=== PATIENT | female | born 1935 | race Caucasian/White ===

== ENCOUNTER → 2016-07-27 | Outpatient (CLI) | payer MEDICARE, OTHER ==
[~2016-07-27] MED LIST: SYNTHROID0.05 MG PO; VITAMIN B12250 MCG PO; VITAMIN C PUR1000 MG PO
== END ==
LOC: MAMMO 09:23
DX: Z12.31 Encounter for screening mammogram for malignant neoplasm of breast (principal)
CPT/HCPCS: G0202

== ENCOUNTER → 2016-07-27 | Outpatient (CLI) | payer MEDICARE, OTHER | LOC: RAD 09:25 | DX: M85.80 Other specified disorders of bone density and structure, unspecified site (principal) ==

== ENCOUNTER → 2017-02-16 | Outpatient (CLI) | payer MEDICARE, OTHER ==
[2015-07-02 11:54] VITALS: BP 158/65
== END ==
LOC: LAB 16:25
DX: R10.2 Pelvic and perineal pain (principal)

== ENCOUNTER → 2017-06-25 | Outpatient (CLI) | payer MEDICARE, OTHER ==
[2015-07-02 11:54] VITALS: BP 158/65
[2017-06-25 17:21] LABS: EOS # 0.1 (0.04-0.40); EOS % 0.8 % (1.0-5.0); HEMATOCRIT 39.4 % (37.0-47.0); HEMOGLOBIN 13.1 g/dL (12.5-16.0); LYMPH# 1.8 (1.50-4.00); MEAN CELL VOLUME 88 fl (78-100); MEAN CORPUSCULAR HEMOGLOBIN 29 pg (27-31); MEAN CORPUSCULAR HGB CONC 33 g/dL (33-37); MONO # 0.8 (0.20-0.80); NEU # 5.1 (1.40-6.50); PLATELET COUNT 270 K/mm3 (130-400); RED CELL DISTRIBUTION WIDTH 13.8 % (11.5-14.5); WHITE BLOOD COUNT 7.7 K/mm3 (4.8-10.8)
[2017-06-25 17:32] LABS: ALBUMIN 3.8 g/dL (3.5-5.0); BUN/CREATININE RATIO 23.5 (6.0-26.0); CALCIUM 9.4 mg/dL (8.4-10.2); POTASSIUM 3.9 mmol/L (3.6-5.0); TOTAL BILIRUBIN 0.4 mg/dL (0.2-1.3); TOTAL PROTEIN 6.7 g/dL (6.3-8.2)
[2017-06-25 18:02] LABS: MEAN PLATELET VOLUME 12.2 fl (7.4-10.4)
[2017-06-25 18:04] LABS: ERYTHROCYTE SEDIMENTATION RATE 5 mm/hr (0-30)
[2017-06-25 18:36] LABS: PH-URINE 5.5 (5.0 - 8.0); URINE APPEARANCE HAZY; URINE BILIRUBIN NEGATIVE (NEGATIVE); URINE BLOOD NEGATIVE (NEGATIVE); URINE COLOR YELLOW; URINE GLUCOSE NEGATIVE (NEGATIVE); URINE KETONE NEGATIVE (NEGATIVE); URINE NITRATE NEGATIVE (NEGATIVE); URINE PROTEIN(semi-quant) NEGATIVE (NEGATIVE); URINE UROBILINOGEN NORMAL (NORMAL)
[2017-06-25 18:37] LABS: URINE LEUKOCYTE ESTERASE 2+ (NEGATIVE)
== END ==
LOC: LAB 15:16
PROVIDERS: Internal Medicine
DX: M85.89 Other specified disorders of bone density and structure, multiple sites (principal); E78.2 Mixed hyperlipidemia; E03.4 Atrophy of thyroid (acquired); Z12.11 Encounter for screening for malignant neoplasm of colon; N39.0 Urinary tract infection, site not specified

== ENCOUNTER → 2017-06-28 | Outpatient (CLI) | payer MEDICARE, OTHER ==
[2015-07-02 11:54] VITALS: BP 158/65
== END ==
LOC: LAB 08:04
DX: Z12.11 Encounter for screening for malignant neoplasm of colon (principal)

== ENCOUNTER → 2018-02-11 | Outpatient (CLI) | payer MEDICARE, BC ==
[2015-07-02 11:54] VITALS: BP 158/65
== END ==
LOC: RAD 10:32
DX: M79.671 Pain in right foot (principal)

== ENCOUNTER → 2018-03-02 | Outpatient (CLI) | payer MEDICARE, OTHER ==
[2015-07-02 11:54] VITALS: BP 158/65
== END ==
LOC: MAMMO 09:50
DX: Z12.31 Encounter for screening mammogram for malignant neoplasm of breast (principal); Z98.890 Other specified postprocedural states

== ENCOUNTER → 2018-03-02 | Outpatient (CLI) | payer MEDICARE, OTHER ==
[2015-07-02 11:54] VITALS: BP 158/65
== END ==
LOC: RAD 10-20 10:00
DX: Z13.820 Encounter for screening for osteoporosis (principal); M85.80 Other specified disorders of bone density and structure, unspecified site

== ENCOUNTER → 2018-04-28 | Outpatient (CLI) | payer MEDICARE, OTHER ==
[2015-07-02 11:54] VITALS: BP 158/65
== END ==
LOC: RAD 11:20
DX: M19.071 Primary osteoarthritis, right ankle and foot (principal)

== ENCOUNTER → 2018-05-02 | Outpatient (CLI) | payer MEDICARE, OTHER ==
[2015-07-02 11:54] VITALS: BP 158/65
== END ==
LOC: RAD 14:00
DX: M76.811 Anterior tibial syndrome, right leg (principal)

== ENCOUNTER → 2018-06-28 | Outpatient (CLI) | payer MEDICARE, OTHER ==
[2015-07-02 11:54] VITALS: BP 158/65
[2018-06-28 14:16] LABS: EOS % 0.4 % (1.0-5.0); HEMATOCRIT 41.4 % (37.0-47.0); HEMOGLOBIN 13.7 g/dL (12.5-16.0); LYMPH# 1.7 (1.50-4.00); MEAN CELL VOLUME 88 fl (78-100); MEAN CORPUSCULAR HEMOGLOBIN 29 pg (27-31); MEAN CORPUSCULAR HGB CONC 33 g/dL (33-37); MEAN PLATELET VOLUME 11.3 fl (7.4-10.4); MONO # 0.6 (0.20-0.80); NEU # 4.4 (1.40-6.50); PLATELET COUNT 234 K/mm3 (130-400); RED BLOOD COUNT 4.69 M/mm3 (4.10-5.30); RED CELL DISTRIBUTION WIDTH 13.6 % (11.5-14.5); WHITE BLOOD COUNT 6.7 K/mm3 (4.8-10.8)
[2018-06-28 14:24] LABS: ALBUMIN 4.4 g/dL (3.5-5.0); CALCIUM 9.7 mg/dL (8.4-10.2); POTASSIUM 3.7 mmol/L (3.6-5.0); TOTAL BILIRUBIN 0.3 mg/dL (0.2-1.3); TOTAL PROTEIN 7.4 g/dL (6.3-8.2)
[2018-06-28 14:49] LABS: URINE APPEARANCE CLEAR; URINE BILIRUBIN NEGATIVE (NEGATIVE); URINE BLOOD NEGATIVE (NEGATIVE); URINE COLOR YELLOW; URINE GLUCOSE NEGATIVE (NEGATIVE); URINE KETONE NEGATIVE (NEGATIVE); URINE LEUKOCYTE ESTERASE 1+ (NEGATIVE); URINE NITRATE NEGATIVE (NEGATIVE); URINE PROTEIN(semi-quant) TRACE mg/dL (NEGATIVE); URINE UROBILINOGEN NORMAL (NORMAL)
[2018-06-28 14:50] LABS: URINE MUCUS PRESENT (NOT PRESENT)
[2018-06-28 16:31] LABS: ERYTHROCYTE SEDIMENTATION RATE 7 mm/hr (0-30)
== END ==
LOC: LAB 13:25
PROVIDERS: Internal Medicine
DX: Z13.820 Encounter for screening for osteoporosis (principal); M85.80 Other specified disorders of bone density and structure, unspecified site; E03.9 Hypothyroidism, unspecified; E78.5 Hyperlipidemia, unspecified; R20.2 Paresthesia of skin

== ENCOUNTER → 2018-06-30 | Outpatient (CLI) | payer MEDICARE, OTHER ==
[2015-07-02 11:54] VITALS: BP 158/65
== END ==
LOC: LAB 08:49
DX: Z13.820 Encounter for screening for osteoporosis (principal); M85.80 Other specified disorders of bone density and structure, unspecified site; E03.9 Hypothyroidism, unspecified; E78.5 Hyperlipidemia, unspecified

== ENCOUNTER → 2018-08-25 | Outpatient (CLI) | payer MEDICARE, OTHER ==
[2015-07-02 11:54] VITALS: BP 158/65
== END ==
LOC: LAB 13:12
DX: E03.9 Hypothyroidism, unspecified (principal)

== ENCOUNTER → 2019-06-26 | Day surgery (SDC) | payer MEDICARE, OTHER ==
[2015-07-02 11:54] VITALS: BP 158/65
== END ==
LOC: MSO 06-19 08:34
DX: Z12.11 Encounter for screening for malignant neoplasm of colon (principal); Z80.0 Family history of malignant neoplasm of digestive organs; K63.5 Polyp of colon
CPT/HCPCS: 00811; J2704; J7120

== ENCOUNTER → 2019-06-28 | Outpatient (CLI) | payer MEDICARE, OTHER ==
[2015-07-02 11:54] VITALS: BP 158/65
[2019-06-28 11:31] LABS: EOS % 0.2 % (1.0-5.0); HEMOGLOBIN 12.7 g/dL (12.5-16.0); LYMPH# 1.5 (1.50-4.00); MEAN CELL VOLUME 89 fl (78-100); MEAN CORPUSCULAR HEMOGLOBIN 28 pg (27-31); MEAN CORPUSCULAR HGB CONC 32 g/dL (33-37); MEAN PLATELET VOLUME 10.5 fl (7.4-10.4); PLATELET COUNT 274 K/mm3 (130-400); RED BLOOD COUNT 4.48 M/mm3 (4.10-5.30); RED CELL DISTRIBUTION WIDTH 13.3 % (11.5-14.5); WHITE BLOOD COUNT 9.5 K/mm3 (4.8-10.8)
[2019-06-28 11:38] LABS: PH-URINE 5.5 (5.0 - 8.0); URINE APPEARANCE CLEAR; URINE BILIRUBIN NEGATIVE (NEGATIVE); URINE BLOOD NEGATIVE (NEGATIVE); URINE COLOR YELLOW; URINE GLUCOSE NEGATIVE (NEGATIVE); URINE KETONE NEGATIVE (NEGATIVE); URINE LEUKOCYTE ESTERASE NEGATIVE (NEGATIVE); URINE NITRATE NEGATIVE (NEGATIVE); URINE PROTEIN(semi-quant) TRACE mg/dL (NEGATIVE); URINE UROBILINOGEN NORMAL (NORMAL); URINE WBC 0-1 /hpf (0-3)
[2019-06-28 11:40] LABS: POTASSIUM 3.9 mmol/L (3.5-5.1)
[2019-06-28 11:41] LABS: ALBUMIN 3.8 g/dL (3.4-4.8)
[2019-06-28 11:43] LABS: TOTAL PROTEIN 6.8 g/dL (6.2-8.1)
[2019-06-28 11:45] LABS: TOTAL BILIRUBIN 0.2 mg/dL (0.2-1.2)
[2019-06-28 12:34] LABS: ERYTHROCYTE SEDIMENTATION RATE 14 mm/hr (0-30)
== END ==
LOC: MAMMO 10:58
PROVIDERS: Internal Medicine
DX: Z12.31 Encounter for screening mammogram for malignant neoplasm of breast (principal); Z13.820 Encounter for screening for osteoporosis; E03.9 Hypothyroidism, unspecified; E78.5 Hyperlipidemia, unspecified; M85.80 Other specified disorders of bone density and structure, unspecified site; R20.2 Paresthesia of skin

== ENCOUNTER → 2019-06-30 | Outpatient (CLI) | payer MEDICARE, OTHER ==
[2015-07-02 11:54] VITALS: BP 158/65
== END ==
LOC: LAB 09:25
DX: E78.5 Hyperlipidemia, unspecified (principal); E03.9 Hypothyroidism, unspecified; M85.80 Other specified disorders of bone density and structure, unspecified site

== ENCOUNTER → 2019-07-14 | Outpatient (CLI) | payer MEDICARE, OTHER ==
[2015-07-02 11:54] VITALS: BP 158/65
[2019-07-14 12:33] LABS: ALBUMIN 3.8 g/dL (3.4-4.8); POTASSIUM 4.3 mmol/L (3.5-5.1)
[2019-07-14 12:34] LABS: CALCIUM 9.1 mg/dL (8.3-10.5)
[2019-07-14 12:35] LABS: TOTAL PROTEIN 6.8 g/dL (6.2-8.1)
[2019-07-14 12:37] LABS: TOTAL BILIRUBIN 0.2 mg/dL (0.2-1.2)
[2019-07-14 12:40] LABS: EOS # 0.1 (0.04-0.40); EOS % 1.1 % (1.0-5.0); HEMATOCRIT 40.9 % (37.0-47.0); HEMOGLOBIN 13.2 g/dL (12.5-16.0); MEAN CELL VOLUME 88 fl (78-100); MEAN CORPUSCULAR HEMOGLOBIN 28 pg (27-31); MEAN CORPUSCULAR HGB CONC 32 g/dL (33-37); MEAN PLATELET VOLUME 10.8 fl (7.4-10.4); MONO # 0.7 (0.20-0.80); NEU # 4.1 (1.40-6.50); PLATELET COUNT 213 K/mm3 (130-400); RED BLOOD COUNT 4.65 M/mm3 (4.10-5.30); RED CELL DISTRIBUTION WIDTH 13.6 % (11.5-14.5); WHITE BLOOD COUNT 5.5 K/mm3 (4.8-10.8)
[2019-07-14 12:41] LABS: LYMPH# 0.7 (1.50-4.00)
[2019-07-14 12:49] LABS: PH-URINE 5.5 (5.0 - 8.0); URINE APPEARANCE CLEAR; URINE BILIRUBIN NEGATIVE (NEGATIVE); URINE BLOOD NEGATIVE (NEGATIVE); URINE COLOR YELLOW; URINE GLUCOSE NEGATIVE (NEGATIVE); URINE KETONE NEGATIVE (NEGATIVE); URINE LEUKOCYTE ESTERASE TRACE (NEGATIVE); URINE NITRATE NEGATIVE (NEGATIVE); URINE PROTEIN(semi-quant) NEGATIVE (NEGATIVE); URINE UROBILINOGEN NORMAL (NORMAL)
== END ==
LOC: RAD 12:11
PROVIDERS: Nurse Practitioner Family
DX: J98.4 Other disorders of lung (principal); B33.0 Epidemic myalgia

== ENCOUNTER → 2020-07-03 | Outpatient (CLI) | payer MEDICARE, OTHER ==
[2015-07-02 11:54] VITALS: BP 158/65
== END ==
LOC: MAMMO 09:38
DX: Z12.31 Encounter for screening mammogram for malignant neoplasm of breast (principal)

== ENCOUNTER → 2020-07-03 | Outpatient (CLI) | payer MEDICARE, OTHER ==
[2015-07-02 11:54] VITALS: BP 158/65
[2020-07-03 09:59] LABS: EOS % 0.3 % (1.0-5.0); HEMATOCRIT 39.6 % (37.0-47.0); HEMOGLOBIN 12.9 g/dL (12.5-16.0); LYMPH# 1.6 (1.50-4.00); MEAN CELL VOLUME 88 fl (78-100); MEAN CORPUSCULAR HEMOGLOBIN 29 pg (27-31); MEAN CORPUSCULAR HGB CONC 33 g/dL (33-37); MEAN PLATELET VOLUME 10.7 fl (7.4-10.4); MONO # 0.6 (0.20-0.80); NEU # 4.8 (1.40-6.50); PLATELET COUNT 233 K/mm3 (130-400); RED BLOOD COUNT 4.48 M/mm3 (4.10-5.30); RED CELL DISTRIBUTION WIDTH 13.7 % (11.5-14.5)
[2020-07-03 10:13] LABS: ALBUMIN 4.2 g/dL (3.4-4.8); POTASSIUM 3.9 mmol/L (3.5-5.1)
[2020-07-03 10:14] LABS: CALCIUM 9.2 mg/dL (8.3-10.5)
[2020-07-03 10:16] LABS: TOTAL PROTEIN 7.1 g/dL (6.2-8.1)
[2020-07-03 10:18] LABS: TOTAL BILIRUBIN 0.4 mg/dL (0.2-1.2)
[2020-07-03 11:29] LABS: PH-URINE 5.5 (5.0 - 8.0); URINE APPEARANCE CLEAR; URINE BILIRUBIN NEGATIVE (NEGATIVE); URINE BLOOD NEGATIVE (NEGATIVE); URINE COLOR YELLOW; URINE GLUCOSE NEGATIVE (NEGATIVE); URINE KETONE NEGATIVE (NEGATIVE); URINE LEUKOCYTE ESTERASE NEGATIVE (NEGATIVE); URINE MUCUS PRESENT (NOT PRESENT); URINE NITRATE NEGATIVE (NEGATIVE); URINE PROTEIN(semi-quant) TRACE mg/dL (NEGATIVE); URINE UROBILINOGEN NORMAL (NORMAL); URINE WBC 0-1 /hpf (0-3)
[2020-07-03 11:33] LABS: ERYTHROCYTE SEDIMENTATION RATE 15 mm/hr (0-30)
== END ==
LOC: RAD 09:38 → MAMMO 10:45
PROVIDERS: Internal Medicine
DX: M85.80 Other specified disorders of bone density and structure, unspecified site (principal); E03.4 Atrophy of thyroid (acquired); E78.2 Mixed hyperlipidemia; N39.46 Mixed incontinence

== ENCOUNTER → 2021-02-21 | Outpatient (CLI) | payer MEDICARE ==
[2021-02-21 10:03] LABS: URINE APPEARANCE CLEAR; URINE BILIRUBIN NEGATIVE (NEGATIVE); URINE BLOOD NEGATIVE (NEGATIVE); URINE COLOR YELLOW; URINE GLUCOSE NEGATIVE (NEGATIVE); URINE KETONE NEGATIVE (NEGATIVE); URINE LEUKOCYTE ESTERASE NEGATIVE (NEGATIVE); URINE NITRATE NEGATIVE (NEGATIVE); URINE PROTEIN(semi-quant) NEGATIVE (NEGATIVE); URINE UROBILINOGEN NORMAL (NORMAL); URINE WBC 0-1 /hpf (0-3)
== END ==
LOC: LAB 09:18
PROVIDERS: Internal Medicine
DX: N39.46 Mixed incontinence (principal)

== ENCOUNTER → 2021-05-20 | Outpatient (CLI) | payer MEDICARE | LOC: RAD 12:31 | DX: M17.12 Unilateral primary osteoarthritis, left knee (principal) ==

== ENCOUNTER → 2021-07-08 | Outpatient (CLI) | payer MEDICARE ==
[2021-07-08 09:07] LABS: BASO # 0.02 K/mm3 (0.02-0.10); EOS # 0.06 K/mm3 (0.04-0.40); EOS % 0.7 % (1.0-5.0); LYMPH# 2.35 K/mm3 (1.50-4.00); MEAN CELL VOLUME 90 fl (78-100); MEAN CORPUSCULAR HEMOGLOBIN 29 pg (27-31); MEAN CORPUSCULAR HGB CONC 32 g/dL (33-37); NEU # 4.93 K/mm3 (1.40-6.50); PLATELET COUNT 259 K/mm3 (130-400); RED BLOOD COUNT 4.54 M/mm3 (4.10-5.30); RED CELL DISTRIBUTION WIDTH 14.1 % (11.5-14.5); WHITE BLOOD COUNT 8.3 K/mm3 (4.8-10.8)
[2021-07-08 09:14] LABS: POTASSIUM 4.1 mmol/L (3.5-5.1)
[2021-07-08 09:15] LABS: CALCIUM 9.6 mg/dL (8.3-10.5)
[2021-07-08 09:17] LABS: TOTAL PROTEIN 7.3 g/dL (6.2-8.1)
[2021-07-08 09:18] LABS: TOTAL BILIRUBIN 0.3 mg/dL (0.2-1.2)
== END ==
LOC: LAB 08:51
PROVIDERS: Internal Medicine
DX: Z12.11 Encounter for screening for malignant neoplasm of colon (principal); E78.2 Mixed hyperlipidemia; E03.4 Atrophy of thyroid (acquired); K90.9 Intestinal malabsorption, unspecified

== ENCOUNTER → 2021-07-08 | Outpatient (CLI) | payer MEDICARE | LOC: MAMMO 09:06 | DX: Z12.31 Encounter for screening mammogram for malignant neoplasm of breast (principal) ==

== ENCOUNTER → 2022-08-17 | Outpatient (CLI) | payer MEDICARE ==
[~2022-08-17] MED LIST changes: +NORCO 325 MG-51 TA1 PO
[2022-08-17 19:26] LABS: BASO # 0.01 K/mm3 (0.02-0.10); EOS # 0.03 K/mm3 (0.04-0.40); EOS % 0.4 % (1.0-5.0); HEMOGLOBIN 13.2 g/dL (12.5-16.0); LYMPH# 2.16 K/mm3 (1.50-4.00); MEAN CELL VOLUME 91 fl (78-100); MEAN CORPUSCULAR HEMOGLOBIN 29 pg (27-31); MEAN CORPUSCULAR HGB CONC 32 g/dL (33-37); MEAN PLATELET VOLUME 10.8 fl (7.4-10.4); PLATELET COUNT 227 K/mm3 (130-400); RED BLOOD COUNT 4.52 M/mm3 (4.10-5.30); RED CELL DISTRIBUTION WIDTH 13.5 % (11.5-14.5); WHITE BLOOD COUNT 7.7 K/mm3 (4.8-10.8)
[2022-08-17 19:39] LABS: ALBUMIN 4.3 g/dL (3.4-4.8); POTASSIUM 3.8 mmol/L (3.5-5.1)
[2022-08-17 19:41] LABS: CALCIUM 9.7 mg/dL (8.3-10.5)
[2022-08-17 19:42] LABS: TOTAL PROTEIN 7.5 g/dL (6.2-8.1)
[2022-08-17 19:44] LABS: TOTAL BILIRUBIN 0.3 mg/dL (0.2-1.2)
== END ==
LOC: LAB 19:13
PROVIDERS: Nurse Practitioner Family
DX: M79.89 Other specified soft tissue disorders (principal)

== ENCOUNTER → 2023-04-29 | Day surgery (SDC) | payer MEDICARE ==
[~2023-04-29] MED LIST changes: +AMLODIPINE BESYL5 MG PO; +CALCIUM500 M1 PO; +CYCLOBENZ5 MG PO; +GOOD NEIGHBOR M25 M1 PO; +PHENERGAN 25 TA25 MG PO; +TRAMADOL 50 MG TAB PO
== END | disposition home or self-care (01) ==
LOC: MSO 04-05 13:19
DX: Z12.11 Encounter for screening for malignant neoplasm of colon (principal); Z87.891 Personal history of nicotine dependence; Z86.010 Personal history of colon polyps
CPT/HCPCS: 00812; J1920; J2704; J3010; J7120

== ENCOUNTER 2023-05-06 09:31 | Emergency (ER) | payer MEDICARE ==
[~2023-05-06] VITALS: Ht 157.5 cm; Wt 56.4 kg
[~2023-05-06 09:31] MED LIST changes: -AMLODIPINE BESYL5 MG PO; -CALCIUM500 M1 PO; -GOOD NEIGHBOR M25 M1 PO; -PHENERGAN 25 TA25 MG PO
[2023-05-06 10:03] LABS: BASO # 0.01 K/mm3 (0.02-0.10); EOS # 0.02 K/mm3 (0.04-0.40); EOS % 0.2 % (1.0-5.0); HEMATOCRIT 40.8 % (37.0-47.0); HEMOGLOBIN 13.2 g/dL (12.5-16.0); MEAN CELL VOLUME 93 fl (78-100); MEAN CORPUSCULAR HEMOGLOBIN 30 pg (27-31); MEAN CORPUSCULAR HGB CONC 32 g/dL (33-37); MEAN PLATELET VOLUME 9.4 fl (7.4-10.4); MONO # 0.71 K/mm3 (0.20-0.80); NEU # 9.58 K/mm3 (1.40-6.50); PLATELET COUNT 243 K/mm3 (130-400); RED CELL DISTRIBUTION WIDTH 14.4 % (11.5-14.5); WHITE BLOOD COUNT 11.3 K/mm3 (4.8-10.8)
[2023-05-06 10:17] LABS: ALBUMIN 3.5 g/dL (3.4-4.8); SODIUM 140 mmol/L (136-145)
[2023-05-06 10:18] LABS: CALCIUM 9.2 mg/dL (8.3-10.5)
[2023-05-06 10:19] LABS: GLUCOSE 123 mg/dL (65-105); TOTAL PROTEIN 6.3 g/dL (6.2-8.1)
[2023-05-06 10:20] LABS: CARBON DIOXIDE 28 mmol/L (23-31)
[2023-05-06 10:21] LABS: TOTAL BILIRUBIN 0.4 mg/dL (0.2-1.2)
[2023-05-06] MEDS ORDERED: CALCIUM500 M1 PO (10:23)
[2023-05-06 10:25] LABS: AST-SGOT 18 U/L (5-34)
[2023-05-06 10:26] LABS: ALT/SGPT 36 U/L (0-55)
[2023-05-06 10:43] LABS: TROPONIN-I < 0.030 ng/mL (<0.030)
[2023-05-06 11:44] LABS: URINE WBC 0 /hpf (0-3)
[2023-05-06 12:37] LABS: URINE APPEARANCE CLOUDY; URINE BILIRUBIN NEGATIVE (NEGATIVE); URINE BLOOD TRACE (NEGATIVE); URINE COLOR YELLOW; URINE GLUCOSE NEGATIVE (NEGATIVE); URINE KETONE NEGATIVE (NEGATIVE); URINE LEUKOCYTE ESTERASE NEGATIVE (NEGATIVE); URINE NITRATE NEGATIVE (NEGATIVE); URINE PROTEIN(semi-quant) NEGATIVE (NEGATIVE); URINE UROBILINOGEN NORMAL (NORMAL)
[2023-05-06] MEDS ORDERED: AMLODIPINE BESYL5 MG PO (14:33)
[2023-05-06] MEDS ORDERED: PHENERGAN 25 TA25 MG PO (14:35)
[2023-05-06] MEDS ORDERED: GOOD NEIGHBOR M25 M1 PO (14:35)
[2023-05-06 15:40] VITALS: BP 116/59
== END 2023-05-06 15:43 | disposition home or self-care (01) ==
LOC: ED 09:31
PROVIDERS: Nurse Practitioner
DX: H81.10 Benign paroxysmal vertigo, unspecified ear (principal); R53.1 Weakness
CPT/HCPCS: J2405; J7030

== ENCOUNTER 2023-05-13 07:48 | Outpatient (RCR) | payer MEDICARE | END 2023-06-10 | disposition home or self-care (01) | LOC: PT | DX: M54.12 Radiculopathy, cervical region (principal) ==

== ENCOUNTER → 2023-05-13 | Outpatient (CLI) | payer MEDICARE ==
[~2023-05-13] MED LIST changes: +AMLODIPINE BESYL5 MG PO; +CALCIUM500 M1 PO; +GOOD NEIGHBOR M25 M1 PO; +PHENERGAN 25 TA25 MG PO
[2023-05-13 08:53] LABS: BASO # 0.01 K/mm3 (0.02-0.10); EOS # 0.05 K/mm3 (0.04-0.40); EOS % 0.6 % (1.0-5.0); HEMATOCRIT 39.6 % (37.0-47.0); HEMOGLOBIN 12.8 g/dL (12.5-16.0); LYMPH# 1.16 K/mm3 (1.50-4.00); MEAN CELL VOLUME 93 fl (78-100); MEAN CORPUSCULAR HEMOGLOBIN 30 pg (27-31); MEAN CORPUSCULAR HGB CONC 32 g/dL (33-37); MEAN PLATELET VOLUME 9.4 fl (7.4-10.4); MONO # 0.67 K/mm3 (0.20-0.80); NEU # 5.92 K/mm3 (1.40-6.50); PLATELET COUNT 304 K/mm3 (130-400); RED BLOOD COUNT 4.25 M/mm3 (4.10-5.30); RED CELL DISTRIBUTION WIDTH 13.9 % (11.5-14.5); WHITE BLOOD COUNT 7.8 K/mm3 (4.8-10.8)
[2023-05-13 09:05] LABS: ALBUMIN 3.6 g/dL (3.4-4.8)
[2023-05-13 09:06] LABS: CALCIUM 9.4 mg/dL (8.3-10.5)
[2023-05-13 09:08] LABS: TOTAL PROTEIN 6.9 g/dL (6.2-8.1)
[2023-05-13 09:10] LABS: TOTAL BILIRUBIN 0.4 mg/dL (0.2-1.2)
[2023-05-13 10:10] LABS: ERYTHROCYTE SEDIMENTATION RATE 71 mm/hr (0-30)
[2023-05-13 10:26] LABS: D-DIMER 4.84 mg/L FEU (0.15-0.50)
== END ==
LOC: LAB 08:34
PROVIDERS: Internal Medicine
DX: M54.12 Radiculopathy, cervical region (principal); M62.81 Muscle weakness (generalized); H91.93 Unspecified hearing loss, bilateral; R06.00 Dyspnea, unspecified; G93.41 Metabolic encephalopathy; E78.2 Mixed hyperlipidemia
CPT/HCPCS: Q9967

== ENCOUNTER → 2023-06-10 | Outpatient (CLI) | payer MEDICARE | LOC: RAD 11:25 | DX: E04.1 Nontoxic single thyroid nodule (principal) ==

== ENCOUNTER → 2023-11-02 | Day surgery (SDC) | payer MEDICARE ==
[~2023-11-02] MED LIST changes: +Iohexol 300 - 10 ML VIAL IV ONE; +Lidocaine PF 2% (20 MG/ML) 2 ML VIAL IJ ONE; +methylPREDNISolone acetate 80 MG/ML VIAL IJ ONE
== END | disposition home or self-care (01) ==
LOC: MSO 11:39
DX: M47.22 Other spondylosis with radiculopathy, cervical region (principal); Z87.891 Personal history of nicotine dependence
CPT/HCPCS: J1010; Q9967

== ENCOUNTER → 2023-11-18 | Outpatient (CLI) | payer MEDICARE ==
[~2023-11-18] MED LIST changes: -Iohexol 300 - 10 ML VIAL IV ONE; -Lidocaine PF 2% (20 MG/ML) 2 ML VIAL IJ ONE; -methylPREDNISolone acetate 80 MG/ML VIAL IJ ONE
[2023-11-18 14:27] LABS: ALBUMIN 4.2 g/dL (3.4-4.8); CALCIUM 9.4 mg/dL (8.3-10.5); MAGNESIUM 2.19 mg/dL (1.60-2.60); TOTAL BILIRUBIN 0.5 mg/dL (0.2-1.2); TOTAL PROTEIN 7.2 g/dL (6.2-8.1)
== END ==
LOC: LAB 12:16
PROVIDERS: Nurse Practitioner Family
DX: M79.89 Other specified soft tissue disorders (principal)

== ENCOUNTER → 2023-12-21 | Day surgery (SDC) | payer MEDICARE ==
[~2023-12-21] VITALS: Ht 157.5 cm; Wt 59.9 kg
== END ==
LOC: MSO 09:36
DX: M47.812 Spondylosis without myelopathy or radiculopathy, cervical region (principal); M54.2 Cervicalgia
CPT/HCPCS: J0665

== ENCOUNTER → 2024-01-07 | Outpatient (CLI) | payer MEDICARE | LOC: RAD 06:37 | DX: E04.2 Nontoxic multinodular goiter (principal) ==

== ENCOUNTER → 2024-06-12 | Outpatient (CLI) | payer MEDICARE | LOC: RAD 08:45 | DX: M17.11 Unilateral primary osteoarthritis, right knee (principal) ==

== ENCOUNTER → 2024-07-10 | Outpatient (CLI) | payer MEDICARE ==
[2024-07-10 10:58] LABS: BASO # 0.01 K/mm3 (0.02-0.10); EOS # 0.03 K/mm3 (0.04-0.40); EOS % 0.4 % (1.0-5.0); HEMATOCRIT 42.9 % (37.0-47.0); HEMOGLOBIN 14.3 g/dL (12.5-16.0); MEAN CELL VOLUME 88 fl (78-100); MEAN CORPUSCULAR HEMOGLOBIN 29 pg (27-31); MEAN CORPUSCULAR HGB CONC 33 g/dL (33-37); MEAN PLATELET VOLUME 10.3 fl (7.4-10.4); MONO # 0.61 K/mm3 (0.20-0.80); NEU # 5.07 K/mm3 (1.40-6.50); PLATELET COUNT 329 K/mm3 (130-400); RED BLOOD COUNT 4.86 M/mm3 (4.10-5.30); RED CELL DISTRIBUTION WIDTH 13.2 % (11.5-14.5); WHITE BLOOD COUNT 7.3 K/mm3 (4.8-10.8)
[2024-07-10 11:03] LABS: ALBUMIN 4.8 g/dL (3.4-4.8)
[2024-07-10 11:04] LABS: CALCIUM 10.3 mg/dL (8.3-10.5)
[2024-07-10 11:06] LABS: TOTAL PROTEIN 8.5 g/dL (6.2-8.1)
[2024-07-10 11:08] LABS: TOTAL BILIRUBIN 0.5 mg/dL (0.2-1.2)
[2024-07-10 11:12] LABS: MAGNESIUM 2.05 mg/dL (1.60-2.60)
== END ==
LOC: LAB 10:45
PROVIDERS: Internal Medicine
DX: E78.2 Mixed hyperlipidemia (principal); I10 Essential (primary) hypertension; E03.4 Atrophy of thyroid (acquired); M85.80 Other specified disorders of bone density and structure, unspecified site